=== PATIENT | male | born 1985 | race Asian ===

== ENCOUNTER 2023-05-16 22:14 | Emergency (ER) | payer OTHER, MEDICAID ==
[~2023-05-16] VITALS: Ht 162.6 cm; Wt 61.2 kg
[2023-05-16 22:28] VITALS: BP_SYST 108; PULSE 97; RESP 20; TEMP 98; O2SAT 100
[2023-05-16] MEDS ORDERED: IBUPROFEN 600 MG TABLET PO ONE (22:45)
[2023-05-16 23:48] VITALS: BP_SYST 108; PULSE 97; RESP 20; TEMP 98; O2SAT 100
== END 2023-05-16 23:48 | disposition home or self-care (01) ==
LOC: SED 22:14
DX: S29.011A Strain of muscle and tendon of front wall of thorax, initial encounter (principal); Z79.899 Other long term (current) drug therapy; Y03.0XXA Assault by being hit or run over by motor vehicle, initial encounter; Y93.89 Activity, other specified; Y92.89 Other specified places as the place of occurrence of the external cause; Y99.8 Other external cause status
CPT/HCPCS: 71046-TC; 71110; 99284